=== PATIENT | male | born 1960 | race African-American/Black ===

== ENCOUNTER 2016-09-05 17:16 | Emergency (ER) | payer OTHER ==
[2016-09-05 17:33] VITALS: BP 120/60; PULSE 81; TEMP 99.9; BMI 26.9
[2016-09-05] MEDS ORDERED: IBUPROFEN 600 MG TABLET (FP) PO ONE ×2 (17:54→17:59)
[2016-09-05] MEDS ORDERED: IBUPROFEN 400 MG TABLET (FP) PO ONE (17:57)
--- NOTE | 2016-09-05 18:02 | PDOC ---
History of Present Illness - General Chief Complaint: Injury Stated Complaint: LT WRIST INJURY Time Seen by Provider: 09/05/16 17:36 History Source: Patient Exam Limitations: No Limitations - History of Present Illness Initial Comments: 09/05/16 17:55 55-year-old male presents to the ED status post mechanical fall while at work today. Patient states had tripped on a piece of wood landing on his left hand hyperextending his hand. Patient states no previous injury in the past and denies any sensory changes distally. Patient also denies weakness to the fingers but is unable to move his left thumb completely secondary to pain. Patient states is on no anticoagulation therapy Occurred: reports: just prior to arrival Severity: reports: mild Pain Location: reports: upper extremity Method of Injury: Yes: fall Modifying Factors: improves with: None Loss of Consciousness: no loss of consciousness Associated Symptoms (Fall): denies symptoms Past History - Past Medical History Allergies/Adverse Reactions: Allergies Allergy/AdvReac Type Severity Reaction Status Date / Time No Known Allergies Allergy Verified 09/05/16 17:33 Home Medications: Ambulatory Orders NK [No Known Home Medication] 09/05/16 Other medical history: NONE - Psycho/Social/Smoking Cessation Hx Anxiety: No Suicidal Ideation: No Smoking History: Never smoked Hx Alcohol Use: Yes (social) Drug/Substance Use Hx: No Substance Use Type: Marijuana Patient Lives Alone: No Lives with/in: spouse/SO Review of Systems - Review of Systems Able to Perform ROS?: Yes Constitutional: No: Symptoms Reported Musculoskeletal: Yes: Joint Pain ( left wrist) Integumentary: Yes: Other (left wrist) Hematologic/Lymphatic: No: Symptoms Reported *Physical Exam - Vital Signs Last Vital Signs Temp Pulse Resp BP Pulse Ox 99.9 F H 81 18 120/60 97 09/05/16 17:28 09/05/16 17:28 09/05/16 17:28 09/05/16 17:28 09/05/16 17:28 - Physical Exam General Appearance: Yes: Nourished, Appropriately Dressed. No: Apparent Distress Comments:: 09/05/16 17:57 2+ left radial Musculoskeletal: negative: Vertebral Tenderness Extremity: positive: Normal Capillary Refill, Tender (distal radius and ulna. diffuse edema and unable to flex joint). negative: Normal Range of Motion Integumentary: positive: Normal Color, Warm, Swelling. negative: Erythema, Ecchymosis Neurologic: positive: Motor Strength 5/5 (ambulatory) Procedures - Splinting Splint Location: Left: Wrist, Forearm Pre-Proc Neuro Vasc Exam: normal Hand-Made Type: orthoglass Splint Type: Yes: Short Arm Post-Proc Neuro Vasc Exam: normal Ciro Bandage: 2" Sling: No Complications: No Post splint xray: No ED Treatment Course - RADIOLOGY Radiology Studies Ordered: Category Date Time Status FINGER(S) LEFT [RAD] Stat Radiology 09/05/16 17:53 Ordered WRIST-LEFT [RAD] Stat Radiology 09/05/16 17:53 Ordered Medical Decision Making - Medical Decision Making 09/05/16 18:03 Pt s/p fall with injury to left wrsit. Likely fx of radius. Unable to bend left 1st digit secondary to discomfort at base of digit. Will add finger xray. Motrin ordered 09/05/16 19:15 3 views of the left wrist are available. There is a nondisplaced predominantly transverse fracture of the distal radial metaphysis. There is no angulation. No other acute osseous abnormality is seen for dislocation or subluxation. patient placed in short arm splint and will be given referral to ortho, Dr. Falk. *DC/Admit/Observation/Transfer Diagnosis at time of Disposition: Fracture of radius Qualifiers: Encounter type: initial encounter Radius location: distal Fracture type: closed Fracture alignment: nondisplaced Laterality: left - Discharge Dispostion Disposition: HOME Condition at time of disposition: Good - Referrals Referrals: Tad Fischer MD [Primary Care Provider] - Eran Falk MD [Staff Physician] - - Patient Instructions Printed Discharge Instructions: DI for Wrist Fracture Additional Instructions: Elevate your hand higher than your heart to alleviate swelling. apply ice to the affected area as much as you can. Please take Motrin as needed for discomfort and follow up with referred orthopedist.
== END 2016-09-05 19:28 | disposition home or self-care (01) ==
LOC: JERFT 17:16
PROC: 2W39X1Z Immobilization of Left Upper Extremity using Splint (ICD-10-PCS; principal; 2016-09-05)
DX: S52.592A Other fractures of lower end of left radius, initial encounter for closed fracture (principal); W01.0XXA Fall on same level from slipping, tripping and stumbling without subsequent striking against object, initial encounter; Y93.89 Activity, other specified; Y92.89 Other specified places as the place of occurrence of the external cause; Y99.0 Civilian activity done for income or pay
CPT/HCPCS: 73110-TC-LT; 73140-TC-LT; 99281-25